=== PATIENT | male | born 1950 | race Caucasian/White ===

== ENCOUNTER 2022-07-18 08:29 | Day surgery (SDC) | payer MEDICARE, SELFPAY ==
--- NOTE | 2022-07-17 12:55 | HO.ANESPROP2 ---
Documented by User: Medina Irwin NP 07/17/22 12:58 HPI - Anesthesia Eval Consult details Narrative: 71yo M for Colonoscopy [facility] Past Medical History Medical History Elevated cholesterol Gout HTN (hypertension) Prostate cancer Surgical History Surgical History History of back surgery History of carpal tunnel release of both wrists History of excision of pilonidal cyst Hx of colonoscopy Social History Social History Patient Tobacco Use Status: Current everyday Tobacco user Tobacco use type: Cigarette Cigarettes Per Day: 10 Use of substances other than those prescribed or required for medical reasons: No Are you DNR?: No Advance Directives: No Advance Directives Information Provided: Yes Meds Allergies Allergy/AdvReac Type Severity Reaction Status Date / Time No Known Allergies Allergy Unverified 07/13/22 18:33 Home Medications Medication Instructions Recorded Confirmed Last Taken Type allopurinol 100 mg tablet 2 tab PO DAILY 07/17/22 07/18/22 Unknown History amlodipine 5 mg tablet 1 tab PO DAILY 07/17/22 07/18/22 07/18/22 07:00 History metoprolol succinate 50 mg 1 tab PO DAILY 07/17/22 07/18/22 07/18/22 07:00 History tablet,extended release 24 hr pravastatin 20 mg tablet 1 tab PO DAILY 07/17/22 07/18/22 Unknown History Exam Exam Date and Time: July 17, 2022 1255 Assessment and Plan Assessment Anesthesia Assessment: Chart Reviewed Documented by User: Fadumo Adair MD 07/18/22 09:37 [facility] Past Medical History Medical History Elevated cholesterol Gout HTN (hypertension) Prostate cancer Family History Family history of problems with anesthesia: No Surgical History Surgical History History of back surgery History of carpal tunnel release of both wrists History of excision of pilonidal cyst Hx of colonoscopy History of Problems with Anesthesia: No Social History Social History Patient Tobacco Use Status: Current everyday Tobacco user Tobacco use type: Cigarette Cigarettes Per Day: 10 Use of substances other than those prescribed or required for medical reasons: No Are you DNR?: No Advance Directives: No Advance Directives Information Provided: Yes Meds Allergies Allergy/AdvReac Type Severity Reaction Status Date / Time No Known Allergies Allergy Unverified 07/13/22 18:33 Home Medications Medication Instructions Recorded Confirmed Last Taken Type allopurinol 100 mg tablet 2 tab PO DAILY 07/17/22 07/18/22 Unknown History amlodipine 5 mg tablet 1 tab PO DAILY 07/17/22 07/18/22 07/18/22 07:00 History metoprolol succinate 50 mg 1 tab PO DAILY 07/17/22 07/18/22 07/18/22 07:00 History tablet,extended release 24 hr pravastatin 20 mg tablet 1 tab PO DAILY 07/17/22 07/18/22 Unknown History Exam Airway Mallampati Class: II TM Dist: >3cm Neck ROM: Full Heart: rr Lungs: cta Assessment and Plan Final Anesthetic Review Family History of Problems with Anesthesia: No History of Problems with Anesthesia: No NPO: Yes ASA Class: II Final Preanesthetic Review: No Changes in Pt Med Stat, Meds/Allgs Chart Reviewed, Consent Obtained/Reviewed and Anes Risks/Benef Reviewed Patient Risk: Low Procedure Risk: Low Anesthetic Plan Anesthetic Plan: MAC: Disposition: Standard PACU
[2022-07-18 08:58] VITALS: BMI 22.7
[2022-07-18] MEDS: Lactated Ringers 1,000 ML 100 ML IVCONT (09:14)
--- NOTE | 2022-07-18 09:40 | HO.ANESPROP2 ---
[facility] Past Medical History Medical History Elevated cholesterol Gout HTN (hypertension) Prostate cancer Family History Family history of problems with anesthesia: No Surgical History Surgical History History of back surgery History of carpal tunnel release of both wrists History of excision of pilonidal cyst Hx of colonoscopy History of Problems with Anesthesia: No Social History Social History Patient Tobacco Use Status: Current everyday Tobacco user Tobacco use type: Cigarette Cigarettes Per Day: 10 Use of substances other than those prescribed or required for medical reasons: No Are you DNR?: No Advance Directives: No Advance Directives Information Provided: Yes Meds Allergies Allergy/AdvReac Type Severity Reaction Status Date / Time No Known Allergies Allergy Unverified 07/13/22 18:33 Active Medications: Current Medications Lactated Ringer's (Lr) 1,000 mls @ 100 mls/hr IVCONT .Q10H MILO Last Admin: 07/18/22 09:14 Dose: 100 mls/hr Sodium Biphosphate/Sodium Phosphate (Sodium Phosphate,[place]-Dibasic 133 Ml Enema) 133 ml TN ONCE PRN PRN Reason: Poor Colonoscopy Prep Results Home Medications Medication Instructions Recorded Confirmed Last Taken Type allopurinol 100 mg tablet 2 tab PO DAILY 07/17/22 07/18/22 Unknown History amlodipine 5 mg tablet 1 tab PO DAILY 07/17/22 07/18/22 07/18/22 07:00 History metoprolol succinate 50 mg 1 tab PO DAILY 07/17/22 07/18/22 07/18/22 07:00 History tablet,extended release 24 hr pravastatin 20 mg tablet 1 tab PO DAILY 07/17/22 07/18/22 Unknown History Exam Exam Date and Time: July 18, 2022 0940 Height,Weight and Vital Signs: Height 5 ft 7 in Weight 65.771 kg Airway Mallampati Class: II TM Dist: >3cm Neck ROM: Full Assessment and Plan Assessment Anesthesia Assessment: Anesthesia Plan Discussed, Smoking Cess. Discussed and Chart Reviewed Final Anesthetic Review Family History of Problems with Anesthesia: No History of Problems with Anesthesia: No NPO: Yes ASA Class: II Final Preanesthetic Review: No Changes in Pt Med Stat, Meds/Allgs Chart Reviewed, Consent Obtained/Reviewed and Anes Risks/Benef Reviewed Patient Risk: Intermediate Procedure Risk: Low Anesthetic Plan Anesthetic Plan: MAC: Disposition: Standard PACU
[2022-07-18 10:33] VITALS: BP 111/52; PULSE 60; RESP 15; TEMP 36.3; O2SAT 97
--- NOTE | 2022-07-18 10:34 | P.BOP_ITS ---
Brief Operative Note Date of Service: 07/18/22 Pre-op diagnosis: Screening Post-op diagnosis: other (Polyps) Procedure: Colonoscopy to the cecum and TI with bx/removal of polyp and cold snare polypectomy Surgeon: Qasim Mota Anesthesia: MAC Was an Executive Director Of Nursing used for this Procedure?: No Estimated blood loss (mL): 2.0 Pathology: other (A. Polyps at 20cm) Condition: stable Disposition: PACU
[2022-07-18 10:47] VITALS: BP 130/58; PULSE 58; RESP 17; TEMP 36.4; O2SAT 99
--- NOTE | 2022-07-18 12:17 | OP_ITS ---
SURGEON: Qasim Mota MD INDICATIONS: The patient presents for followup of personal history of a tubular adenoma of the colon. Full consent has been obtained from him for this, including risks of bleeding and perforation. PREOPERATIVE DIAGNOSIS: POSTOPERATIVE DIAGNOSIS: PROCEDURE PERFORMED: Colonoscopy to the cecum and terminal ileum with cold snare polypectomy and biopsy and removal of polyp. ESTIMATED BLOOD LOSS: COMPLICATIONS: ANESTHESIA: Monitored anesthesia care. ASSISTANTS: SPECIMENS: PREOPERATIVE DIAGNOSES: Colorectal cancer screening and personal history of tubular adenoma of the colon. POSTOPERATIVE DIAGNOSES: Colorectal cancer screening and personal history of tubular adenoma of the colon, colon polyps, diverticulosis and internal hemorrhoids. DESCRIPTION OF PROCEDURE: The patient was placed in the left lateral decubitus position. The digital rectal exam revealed no abnormalities. The Olympus video pediatric colonoscope was entered into the rectum and advanced easily to the cecum. Once in the cecum, I did identify normal-appearing cecal pouch with appendiceal orifice and a normal-appearing ileocecal valve. The terminal ileum was cannulated and appeared normal. The scope was withdrawn back in the colon. The entire cecum and ileocecal valve appeared normal. The scope was slowly withdrawn assessing all mucosal surfaces carefully. Preparation was excellent. At 20 cm, were two polyps. One was approximately 3 to 4 mm in diameter and was biopsied and completely removed with a cold biopsy forceps. The other polyp was approximately 6 to 8 mm in diameter and was removed by cold snare polypectomy and placed in the same container. It was recovered by suction. The polypectomy site appeared clean and without residual polyp nor any significant bleeding. There did appear to be multiple hyperplastic less than 5 mm polyps in the rectum which were not biopsied given their gross appearance. I did not visualize any other polyps, colitis nor angiodysplasia. There is a mild amount of sigmoid diverticulosis. In the rectum, the scope was retroflexed visualizing internal hemorrhoids, but no other pathology. The scope was straightened and withdrawn from the patient. He tolerated the procedure well and was returned to the recovery area in stable condition. IMPRESSION: 1. Colon polyps. 2. Diverticulosis. 3. Internal hemorrhoids. PLAN: The results of the pathology will be checked. I recommend a repeat colonoscopy in 5 years for further screening. He would otherwise see me on a p.r.n. basis. MD RAIMUNDO Rolon/AMARILIS / [id number] DORITA
== END 2022-07-18 11:23 | disposition home or self-care (01) ==
PROVIDERS: PCP Internal Medicine; Visit Provider Internal Medicine
PROC: 0DJD8ZZ Inspection of Lower Intestinal Tract, Via Natural or Artificial Opening Endoscopic (ICD-10-PCS; CPT 45378; principal; 2022-07-18 09:30)
DX: Z12.11 Encounter for screening for malignant neoplasm of colon (principal); Z86.010 Personal history of colon polyps; D12.5 Benign neoplasm of sigmoid colon; K57.30 Diverticulosis of large intestine without perforation or abscess without bleeding; K64.8 Other hemorrhoids; I10 Essential (primary) hypertension; E78.5 Hyperlipidemia, unspecified; M10.9 Gout, unspecified; Z85.46 Personal history of malignant neoplasm of prostate; Z79.82 Long term (current) use of aspirin; Z79.899 Other long term (current) drug therapy; F17.210 Nicotine dependence, cigarettes, uncomplicated
CPT/HCPCS: 45385; 45380; 88305

== ENCOUNTER 2024-11-14 06:40 | Day surgery (SDC) | payer MEDICARE, SELFPAY ==
--- OUTSIDE RECORDS SUMMARY | 2024-10-27 11:44 | XMS_ITS | Patient Health Record ---
Author Organization [facility] Address [address] [place] [address] Care Team Providers Care Banjo Repairer Name Role Phone Wayne Nieves MD Primary Care Provider Qasim Mayer [phone] Allergies No Known Allergies Reason For Referral No Information Medications Medication SIG (Take, Route, Frequency, Duration) Notes Start Date End Date Status amLODIPine Besylate 5 MG 1 tablet Orally Once a day Active Pravastatin Sodium 20 MG 1 tablet Orally Once a day Active Metoprolol Succinate ER 50 MG Oral for 90 Active Allopurinol 100 MG Oral for 90 Active Immunizations Vaccine Route Administration Date Status Comme nts Influenza Unknown 02/08/2022 Administered Social History Tobacco Use: Social History Observation Description Date Details (start date - stop date) Current Smoker NA - NA Tobacco Use/Smoking Question Answer Notes Patient is a current smoker How often do you smoke cigarettes? every day How many cigarettes a day do you smoke? 6-10 How soon after you wake up d o you smoke your first cigarette? 6-30 minutes Are you interested in quitting? Thinking about q uitting Alcohol Screen Question Answer Notes Did you have a drink contain ing alcohol in the past year? Yes How often did you have a dri nk containing alcohol in the past year? 2 to 3 times a week (3 points) How many drinks did you have on a typical day when you were drinking in the past year? 1 or 2 drinks (0 point) How often did you have 6 or more drinks on one occasion in the past year? Never (0 point) Points 3 Interpretation Negative Section Notes: He does smoke and uses occas ional alcohol He does smoke and uses occas ional alcohol He does smoke 1/[address] inks 2 beers daily Problems Problem Type SNOMED Code ICD Code Onset Dates Problem Status W/U Status Risk Notes Problem 698676254 Encounter for screening for malignant neoplasm of colon (Z12.11) Active confirmed Problem 157695433 History of adenomatous polyp of colon (Z86.010) Active confirmed Problem Diverticular disease of colon (835096990) Diverticulosis of large intestine without perforation or abscess without bleeding (K57.30) Active confirmed Problem 215495880 Preprocedural examination (Z01.818) Active confirmed Problem 913218668 Long-term use of aspirin therapy (Z79.82) Active confirmed Plan Of Treatment Pending Test Test Name Order Date Pathology 07/18/2022 Future Test Test Name Order Date COLONOSCOPY 04/25/2011 COLONOSCOPY 09/11/2016 COLONOSCOPY 05/20/2022 Insurance Providers Payer Name Payer Address Payer Phone Subscriber Number Group Number Insured Name Patient Relationship to Insured Coverage Start Date Coverage End Date [facility] [employer] [address] [place] [address] [id number] CATHERINE OLIVEIRA Self - patient is the insured Medical (General) History Medical History History ICD Code Screening colonoscopy in [address] Liriano at [facility]---1 tubular adenoma removed and multiple hyperplastic polyps; Hyperplastic polyps removed 06/2011 with me Hypertension Hyperlipidemia Gout Denies [place],DM,CVA,Lung disease,renal dise ase Prostate cancer diagnosed in 2015--Ten on --sees Dr. Mayo Colonoscopy in 2016 with 2 tubular adeno mas removed Surgical History Surgery Date(Month/Year) Bilateral carpal tunnel surgeries Pilonidal cyst Lumbar discs 2020 at [facility]
[2024-11-08 10:34] VITALS: BMI 22.8
--- NOTE | 2024-11-09 10:42 | HO.ANESPROP2 ---
Documented by User: Medina Irwin NP 11/10/24 10:18 HPI - Anesthesia Eval Consult details Narrative: 74yo M for Right Cataract Extraction IOL Insertion No previous cataract on record Hx mild - last echo 2020. Benign cardiac exam at [facility] preop clinic. Reviewed with [facility] Past Medical History Medical History (Updated 11/14/24 @ 07:05 by Kailey Geronimo RN) Heart murmur Broken neck History of chest x-ray (09/2020) IFG (impaired fasting glucose) Flexion contracture Dry senile macular retinal degeneration Benign essential hypertension Anxiety Daily consumption of alcohol Smoker Mild aortic insufficiency Cataracts, bilateral Prostate cancer Gout Elevated cholesterol HTN (hypertension) Family History Family history of problems with anesthesia: No Surgical History Surgical History (Updated 11/08/24 @ 10:30 by Carisa Ojeda RN) History of back surgery History of excision of pilonidal cyst History of carpal tunnel release of both wrists Hx of colonoscopy History of Problems with Anesthesia: No Social History Social History (Updated 11/08/24 @ 10:36 by Carisa Ojeda RN) Household Members: Significant Other Housing: House Patient Tobacco Use Status: Current everyday Tobacco user Tobacco use type: Cigarette Cigarettes Per Day: 10 Are you DNR?: No Advance Directives: No Advance Directives Information Provided: Yes Advance Directives on File: No Meds Allergies Allergy/AdvReac Type Severity Reaction Status Date / Time No Known Allergies Allergy Unverified 07/13/22 18:33 Home Medications ?Medication ?Instructions ?Recorded ?Confirmed ?Last Taken ?Type allopurinol 100 mg tablet 2 tab PO DAILY 07/17/22 11/08/24 Unknown History amlodipine 5 mg tablet 1 tab PO DAILY 07/17/22 11/08/24 07/18/22 07:00 History metoprolol succinate 50 mg 1 tab PO DAILY 07/17/22 11/08/24 07/18/22 07:00 History tablet,extended release 24 hr pravastatin 20 mg tablet 1 tab PO DAILY 07/17/22 11/08/24 Unknown History cholecalciferol (vitamin D3) 50 50 mcg PO DAILY 11/08/24 11/08/24 Unknown History mcg (2,000 unit) capsule (Vitamin D3) hydrochlorothiazide 50 mg tablet 50 mg PO DAILY 11/08/24 11/08/24 Unknown History Exam Height,Weight and Vital Signs: Height 5 ft 4.96 in Weight 62 kg Assessment and Plan Assessment Anesthesia Assessment: Chart Reviewed Final Anesthetic Review Family History of Problems with Anesthesia: No History of Problems with Anesthesia: No Documented by User: Tanisha De La Cruz MD 11/14/24 07:10 [facility] Past Medical History Medical History (Updated 11/14/24 @ 07:05 by Kailey Geronimo RN) Heart murmur Broken neck History of chest x-ray (09/2020) IFG (impaired fasting glucose) Flexion contracture Dry senile macular retinal degeneration Benign essential hypertension Anxiety Daily consumption of alcohol Smoker Mild aortic insufficiency Cataracts, bilateral Prostate cancer Gout Elevated cholesterol HTN (hypertension) Surgical History Surgical History (Updated 11/08/24 @ 10:30 by Carisa Ojeda RN) History of back surgery History of excision of pilonidal cyst History of carpal tunnel release of both wrists Hx of colonoscopy Social History Social History (Updated 11/08/24 @ 10:36 by Carisa Ojeda RN) Household Members: Significant Other Housing: House Patient Tobacco Use Status: Current everyday Tobacco user Tobacco use type: Cigarette Cigarettes Per Day: 10 Are you DNR?: No Advance Directives: No Advance Directives Information Provided: Yes Advance Directives on File: No Meds Allergies Allergy/AdvReac Type Severity Reaction Status Date / Time No Known Allergies Allergy Unverified 07/13/22 18:33 Home Medications ?Medication ?Instructions ?Recorded ?Confirmed ?Last Taken ?Type allopurinol 100 mg tablet 2 tab PO DAILY 07/17/22 11/08/24 Unknown History amlodipine 5 mg tablet 1 tab PO DAILY 07/17/22 11/08/24 07/18/22 07:00 History metoprolol succinate 50 mg 1 tab PO DAILY 07/17/22 11/08/24 07/18/22 07:00 History tablet,extended release 24 hr pravastatin 20 mg tablet 1 tab PO DAILY 07/17/22 11/08/24 Unknown History cholecalciferol (vitamin D3) 50 50 mcg PO DAILY 11/08/24 11/08/24 Unknown History mcg (2,000 unit) capsule (Vitamin D3) hydrochlorothiazide 50 mg tablet 50 mg PO DAILY 11/08/24 11/08/24 Unknown History Exam Airway Mallampati Class: II TM Dist: >3cm Neck ROM: Full Heart: rrr Lungs: cta Assessment and Plan Assessment Anesthesia Assessment: Anesthesia Plan Discussed Final Anesthetic Review NPO: Yes ASA Class: II Final Preanesthetic Review: No Changes in Pt Med Stat, Meds/Allgs Chart Reviewed and Consent Obtained/Reviewed Patient Risk: Low Procedure Risk: Low Anesthetic Plan Anesthetic Plan: MAC: Disposition: Standard PACU
[2024-11-14 07:02] VITALS: BP 156/56; PULSE 61; RESP 16; TEMP 36.3; O2SAT 97
[2024-11-14] MEDS: Tetracaine HCl/PF 0.5% Oph Sol 4 ML DROPS 1 DROP EYE-RIGHT (07:06)
[2024-11-14] MEDS: Cyclopentolate 1 % Ophth Sol 2 ML DRPBTL 1 DROP EYE-RIGHT ×3 (07:07→07:16)
[2024-11-14] MEDS: Tropicamide 1 % Ophth Sol 3 ML BTL 1 DROP EYE-RIGHT ×3 (07:07→07:18)
[2024-11-14] MEDS: Ketorolac Tromethamine 0.5% Op 5 ML DROPS 1 DROP EYE-RIGHT ×3 (07:08→07:18)
[2024-11-14] MEDS: Phenylephrine HCL 2.5% Oph SoL 2 ML BOTTLE 1 DROP EYE-RIGHT ×3 (07:09→07:19)
[2024-11-14] MEDS: Lactated Ringers 500 ML 50 ML IV (07:20)
--- NOTE | 2024-11-14 07:46 | P.PCNO_ITS ---
Ophthalmology Procedure Procedure Date of Service: 11/14/24 Ophthalmology Viscoelastic: Healon Duet Dual Pack Pro Ophthalmology Lenses: IOL Acrysof MP - [id number] (13) Procedure Notes: PREOPERATIVE DIAGNOSIS: Decreased visual acuity right eye secondary to cataract POSTOPERATIVE DIAGNOSIS: Same PROCEDURE: Right cataract extraction with intraocular lens insertion SURGEON: Dickson Silverman M.D. ANESTHESIA: Topical/MAC ESTIMATED BLOOD LOSS: None COMPLICATIONS: None After obtaining informed consent, the patient was brought to the operating room suite and placed in the supine position. After adequate sedation per anesthesia, topical drops of Tetracaine were given to the right eye. The eye was then prepped and draped in the usual sterile fashion. The operating room microscope was then positioned over the operative eye and a lid speculum placed. A paracentesis was created. Viscoelastic was then instilled into the anterior chamber. A three plane incision was then created temporally, utilizing a 2.85 mm keratome. Capsulotomy forceps were then utilized to create a circular tear capsulotomy. Hydrodissection and hydrodelineation were carried out until adequate mobilization of the nucleus occurred. Phacoemulsification was then utilized to remove the dense central nucl eus followed by removal of the cortical material utilizing the automated aspiration irrigation unit. Viscoelastic was instilled into the posterior capsular bag followed by placement of a posterior chamber intraocular lens without difficulty. The residual Viscoelastic was then removed utilizing the automated IA machine. The wound was checked and found to be watertight. The patient tolerated the procedure well and the lid speculum was removed. Intracameral injection of Vigamox 0.1 mL followed by a subtenon injection of Kenalog-40 0.2 mL were administered. The patient will be seen in the a.m.
--- NOTE | 2024-11-14 07:46 | MHC.SHP ---
Pre-Procedural Eval Section A - 24 Hr Update-Section A only Date of Service: 11/14/24 The patient is an INPATIENT: No Changes since office visit: No Cold of Flu in the past 2 weeks, No New Medical Problems, No Changes in Medication and No Patient answered all questions The patient has been examined within 24 hours of the surgical procedure. The History & Physical has been completed within 30 days and I have reviewed it.: Yes Section B - Complete if H&P > 30 days Chief Complaint: Age-related nuclear cataract, right eye Allergies: Allergies Allergy/AdvReac Type Severity Reaction Status Date / Time No Known Allergies Allergy Unverified 07/13/22 18:33 Plan Diagnosis/Plan: Unchanged I have reviewed the history and physical and performed a pertinent physical examination on my patient. No changes have occurred unless specified. Time Spent With Patient Time: Total time managing care of this patient today ____ minutes.
[2024-11-14 08:08] VITALS: BP 125/48; PULSE 58; RESP 16; TEMP 36.4; O2SAT 99
== END 2024-11-14 08:44 | disposition home or self-care (01) ==
PROVIDERS: PCP Nurse Practitioner Family; Visit Provider Ophthalmology
PROC: (CPT 66985; principal; 2024-11-14 08:00)
DX: H25.11 Age-related nuclear cataract, right eye (principal); H52.4 Presbyopia; H35.031 Hypertensive retinopathy, right eye; Q13.4 Other congenital corneal malformations; I10 Essential (primary) hypertension; E78.00 Pure hypercholesterolemia, unspecified; Z87.828 Personal history of other (healed) physical injury and trauma; Z79.899 Other long term (current) drug therapy; F17.210 Nicotine dependence, cigarettes, uncomplicated
CPT/HCPCS: 66984; J2250; J3301; V2630

== ENCOUNTER 2024-11-28 06:45 | Day surgery (SDC) | payer MEDICARE, SELFPAY ==
[2024-11-08 10:41] VITALS: BMI 22.8
--- NOTE | 2024-11-25 09:52 | HO.ANESPROP2 ---
Documented by User: Medina Irwin NP 11/25/24 09:53 HPI - Anesthesia Eval Consult details Narrative: 74yo M for Left Cataract Extraction IOL Insertion Right eye 11/14/24: Midaz 2 Hx mild - last echo 2020. Benign cardiac exam at [facility] preop clinic. Reviewed with [facility] Past Medical History Medical History (Updated 11/14/24 @ 07:05 by Kailey Geronimo RN) Heart murmur Broken neck History of chest x-ray (09/2020) IFG (impaired fasting glucose) Flexion contracture Dry senile macular retinal degeneration Benign essential hypertension Anxiety Daily consumption of alcohol Smoker Mild aortic insufficiency Cataracts, bilateral Prostate cancer Gout Elevated cholesterol HTN (hypertension) Family History Family history of problems with anesthesia: No Surgical History Surgical History (Updated 11/21/24 @ 14:47 by Carisa Ojeda RN) Hx of right cataract extraction (11/14/24) History of back surgery History of excision of pilonidal cyst History of carpal tunnel release of both wrists Hx of colonoscopy History of Problems with Anesthesia: No Social History Social History (Updated 11/08/24 @ 10:36 by Carisa Ojeda RN) Household Members: Significant Other Housing: House Patient Tobacco Use Status: Current everyday Tobacco user Tobacco use type: Cigarette Cigarettes Per Day: 10 Are you DNR?: No Advance Directives: No Advance Directives Information Provided: Yes Advance Directives on File: No Meds Allergies Allergy/AdvReac Type Severity Reaction Status Date / Time No Known Allergies Allergy Unverified 07/13/22 18:33 Home Medications ?Medication ?Instructions ?Recorded ?Confirmed ?Last Taken ?Type allopurinol 100 mg tablet 2 tab PO DAILY 07/17/22 11/21/24 Unknown History amlodipine 5 mg tablet 1 tab PO DAILY 07/17/22 11/21/24 11/14/24 History metoprolol succinate 50 mg 1 tab PO DAILY 07/17/22 11/21/24 11/14/24 History tablet,extended release 24 hr pravastatin 20 mg tablet 1 tab PO DAILY 07/17/22 11/21/24 Unknown History cholecalciferol (vitamin D3) 50 50 mcg PO DAILY 11/08/24 11/21/24 Unknown History mcg (2,000 unit) capsule (Vitamin D3) hydrochlorothiazide 50 mg tablet 50 mg PO DAILY 11/08/24 11/21/24 Unknown History Exam Height,Weight and Vital Signs: Height 5 ft 4.96 in Weight 62 kg Assessment and Plan Assessment Anesthesia Assessment: Chart Reviewed Final Anesthetic Review Family History of Problems with Anesthesia: No History of Problems with Anesthesia: No Documented by User: Tanisha De La Cruz MD 11/28/24 07:10 [facility] Past Medical History Medical History (Updated 11/14/24 @ 07:05 by Kailey Geronimo RN) Heart murmur Broken neck History of chest x-ray (09/2020) IFG (impaired fasting glucose) Flexion contracture Dry senile macular retinal degeneration Benign essential hypertension Anxiety Daily consumption of alcohol Smoker Mild aortic insufficiency Cataracts, bilateral Prostate cancer Gout Elevated cholesterol HTN (hypertension) Surgical History Surgical History (Updated 11/21/24 @ 14:47 by Carisa Ojeda RN) Hx of right cataract extraction (11/14/24) History of back surgery History of excision of pilonidal cyst History of carpal tunnel release of both wrists Hx of colonoscopy Social History Social History (Updated 11/08/24 @ 10:36 by Carisa Ojeda RN) Household Members: Significant Other Housing: House Patient Tobacco Use Status: Current everyday Tobacco user Tobacco use type: Cigarette Cigarettes Per Day: 10 Are you DNR?: No Advance Directives: No Advance Directives Information Provided: Yes Advance Directives on File: No Meds Allergies Allergy/AdvReac Type Severity Reaction Status Date / Time No Known Allergies Allergy Unverified 07/13/22 18:33 Home Medications ?Medication ?Instructions ?Recorded ?Confirmed ?Last Taken ?Type allopurinol 100 mg tablet 2 tab PO DAILY 07/17/22 11/21/24 Unknown History amlodipine 5 mg tablet 1 tab PO DAILY 07/17/22 11/21/24 11/14/24 History metoprolol succinate 50 mg 1 tab PO DAILY 07/17/22 11/21/24 11/14/24 History tablet,extended release 24 hr pravastatin 20 mg tablet 1 tab PO DAILY 07/17/22 11/21/24 Unknown History cholecalciferol (vitamin D3) 50 50 mcg PO DAILY 11/08/24 11/21/24 Unknown History mcg (2,000 unit) capsule (Vitamin D3) hydrochlorothiazide 50 mg tablet 50 mg PO DAILY 11/08/24 11/21/24 Unknown History Exam Airway Mallampati Class: II TM Dist: >3cm Neck ROM: Full Heart: rrr Lungs: cta Assessment and Plan Assessment Anesthesia Assessment: Anesthesia Plan Discussed Final Anesthetic Review NPO: Yes ASA Class: III Final Preanesthetic Review: No Changes in Pt Med Stat, Meds/Allgs Chart Reviewed and Consent Obtained/Reviewed Patient Risk: Intermediate Procedure Risk: Low Anesthetic Plan Anesthetic Plan: MAC: Disposition: Standard PACU
[2024-11-28 07:04] VITALS: BP 163/61; PULSE 71; RESP 16; TEMP 36.4; O2SAT 96
[2024-11-28] MEDS: Lactated Ringers 500 ML 50 ML IV (07:11)
[2024-11-28] MEDS: Tetracaine HCl/PF 0.5% Oph Sol 4 ML DROPS 1 DROP EYE-LEFT (07:12)
[2024-11-28] MEDS: Cyclopentolate 1 % Ophth Sol 2 ML DRPBTL 1 DROP EYE-LEFT ×3 (07:14→07:23)
[2024-11-28] MEDS: Ketorolac Tromethamine 0.5% Op 5 ML DROPS 1 DROP EYE-LEFT ×3 (07:17→07:26)
[2024-11-28] MEDS: Tropicamide 1 % Ophth Sol 3 ML BTL 1 DROP EYE-LEFT ×3 (07:17→07:24)
[2024-11-28] MEDS: Phenylephrine HCL 2.5% Oph SoL 2 ML BOTTLE 1 DROP EYE-LEFT ×3 (07:18→07:27)
--- NOTE | 2024-11-28 07:59 | MHC.SHP ---
Pre-Procedural Eval Section A - 24 Hr Update-Section A only Date of Service: 11/28/24 The patient is an INPATIENT: No Changes since office visit: No Cold of Flu in the past 2 weeks, No New Medical Problems, No Changes in Medication and No Patient answered all questions The patient has been examined within 24 hours of the surgical procedure. The History & Physical has been completed within 30 days and I have reviewed it.: Yes Section B - Complete if H&P > 30 days Chief Complaint: Age-related nuclear cataract, left eye Allergies: Allergies Allergy/AdvReac Type Severity Reaction Status Date / Time No Known Allergies Allergy Unverified 07/13/22 18:33 Plan Diagnosis/Plan: Unchanged I have reviewed the history and physical and performed a pertinent physical examination on my patient. No changes have occurred unless specified. Time Spent With Patient Time: Total time managing care of this patient today ____ minutes.
--- NOTE | 2024-11-28 07:59 | HO.PNOPHT ---
Ophthalmology Procedure Procedure Date of Service: 11/28/24 Ophthalmology Viscoelastic: Healon Duet Dual Pack Pro Ophthalmology Lenses: IOL Acrysof MP - [id number] (15.5) Procedure Notes: erythromycin ointment 1/4 inch 3x/day x 5 daysPREOPERATIVE DIAGNOSIS: Decreased visual acuity left eye secondary to cataract POSTOPERATIVE DIAGNOSIS: Same PROCEDURE: Left cataract extraction with intraocular lens insertion SURGEON: Dickson Silverman M.D. ANESTHESIA: Topical/MAC ESTIMATED BLOOD LOSS: None COMPLICATIONS: None After obtaining informed consent, the patient was brought to the operation room suite and placed in the supine position. After adequate sedation per anesthesia, topical drops of Tetracaine were given to the left eye. The eye was then prepped and draped in the usual sterile fashion. The operating room microscope was then positioned over the operative eye and a lid speculum placed. A paracentesis was created. Viscoelastic was then instilled into the anterior chamber. A three plane incision was then created temporally, utilizing a 2.85 mm keratome. Capsulotomy forceps were then utilized to create a circular tear capsulotomy. Hydrodissection and hydrodelineation were carried out until adequate mobilization of the nucleus occurred. Phacoemulsification was then utilized to remove the dense central nucleus followed by removal of the cortical material utilizing the automated aspiration irrigation unit. Viscoat elastic was instilled into the posterior capsular bag followed by placement of a posterior chamber intraocular lens without difficulty. The residual Viscoat elastic was then removed utilizing the automated IA machine. The wound was check and found to be watertight. The patient tolerated the procedure well and the lid speculum was removed. Intracameral injection of Vigamox 0.1 mL followed by a subtenon injection of Kenalog-40 0.2 mL were administered. The patient will be seen in the a.m.
[2024-11-28 08:23] VITALS: BP 132/60; PULSE 59; RESP 16; TEMP 36.2; O2SAT 100
[2024-11-28 08:38] VITALS: BP 136/60; PULSE 61; RESP 18; TEMP 36.3; O2SAT 98
== END 2024-11-28 08:42 | disposition home or self-care (01) ==
PROVIDERS: PCP Nurse Practitioner Family; Visit Provider Ophthalmology
PROC: (CPT 66985; principal; 2024-11-28 08:00)
DX: H25.12 Age-related nuclear cataract, left eye (principal); H52.4 Presbyopia; H35.4 Peripheral retinal degeneration; I10 Essential (primary) hypertension; E78.00 Pure hypercholesterolemia, unspecified; Q13.4 Other congenital corneal malformations; M10.9 Gout, unspecified; F10.90 Alcohol use, unspecified, uncomplicated; Z85.46 Personal history of malignant neoplasm of prostate; Z79.899 Other long term (current) drug therapy; Z98.890 Other specified postprocedural states; F17.210 Nicotine dependence, cigarettes, uncomplicated
CPT/HCPCS: 66984; J2250; J3301; V2630